=== PATIENT | female | born 1965 | race Caucasian/White ===

== ENCOUNTER 2017-04-11 06:16 | Day surgery (SDC) | payer BC ==
[~2017-04-11 06:16] MED LIST: Buffered Lidocaine 0.9% SYRIN* 5 ML/SYR SYRINGE INTRADERM ONE; Dexamethasone IV* 4 MG/ML 1 ML (4 MG) IV SLOW PU ONE; Famotidine IV* 10 MG/ML 2 ML (20 mg) IV ONE
[2017-04-11] MEDS ORDERED: Dexamethasone IV* 4 MG/ML 1 ML (4 MG) ONE (06:24)
[2017-04-11] MEDS ORDERED: Ondansetron INJ* 2 MG/ML VIAL ONE ×2 (06:24→07:37)
[2017-04-11] MEDS ORDERED: Buffered Lidocaine 0.9% SYRIN* 5 ML/SYR SYRINGE ONE (06:25)
[2017-04-11] MEDS ORDERED: Scopolamine 1.5 mg* PATCH ONE (06:25)
[2017-04-11] MEDS ORDERED: ceFAZolin 2 GM PREMIX (*) 2 GM/50 ML BAG IVPB ONE (06:25)
[2017-04-11] MEDS ORDERED: Famotidine IV* 10 MG/ML 2 ML (20 mg) ONE (06:26)
[2017-04-11] MEDS ORDERED: Lidocaine 1% MPF wEPI 200,000* 30 ML SDV ONE (07:24)
[2017-04-11] MEDS ORDERED: Bupivacaine 0.25% SDV* 30 ML ONE (07:24)
[2017-04-11] MEDS ORDERED: fentaNYL* 50 MCG/ML 5 ML VIAL (250 MCG VIAL) ONE (07:34)
[2017-04-11] MEDS ORDERED: Atracurium* 10 MG/ML 10 ML VIAL ONE (07:34)
[2017-04-11] MEDS ORDERED: Midazolam* 1 MG/ML 2 ML VIAL (2 MG) ONE (07:35)
[2017-04-11] MEDS ORDERED: Propofol* 10 MG/ML 20 ML BTL IV PUSH ONE (07:37)
[2017-04-11] MEDS ORDERED: Lidocaine 2% PF * 5 ML VIAL ONE (07:52)
[2017-04-11] MEDS ORDERED: Metoprolol Tartrate IV* 1 MG/ML 5 ML VIAL ONE (08:09)
[2017-04-11] MEDS ORDERED: fentaNYL* 50 MCG/ML 2 ML VIAL (100 MCG VIAL) ONE (08:09)
[2017-04-11] MEDS ORDERED: fentaNYL* 50 MCG/ML 2 ML VIAL (100 MCG VIAL) IV PRN (08:21)
[2017-04-11] MEDS ORDERED: DiMENhydriNATE IV* 50 MG/ML VIAL IV PUSH PRN (08:21)
[2017-04-11] MEDS ORDERED: oxyCODONE/Acetamin 5/325 MG* TAB ONE (11:22)
[2017-04-11] MEDS ORDERED: HYDROmorphone INJ* 1 MG/ML CARPUJECT SYRINGE ONE (11:22)
[2017-04-11] MEDS: oxyCODONE/Acetamin 5/325 MG* TAB PO PRN ×2 (11:23→11:24)
[2017-04-11] MEDS: HYDROmorphone INJ* 1 MG/ML CARPUJECT SYRINGE IV PRN ×5 (11:24→12:19)
[2017-04-11] MEDS ORDERED: DiMENhydriNATE IV* 50 MG/ML VIAL ONE (11:27)
[2017-04-11 13:17] VITALS: BP 105/71
== END 2017-04-11 13:46 | disposition home or self-care (01) ==
LOC: OR 06:16
PROVIDERS: ATTEND Plastic Surgery
DX: N62 Hypertrophy of breast (principal); M54.2 Cervicalgia; M25.512 Pain in left shoulder; M25.511 Pain in right shoulder; L30.4 Erythema intertrigo
CPT/HCPCS: 88305; A9270-GY; J0690; J1100; J1170; J1240; J2001; J2250; J2405; J2704; J3010; J3490